=== PATIENT | female | born 1985 | race Caucasian/White ===

== ENCOUNTER 2017-07-05 16:21 | Emergency (ER) | payer OTHER ==
[2017-07-05 16:45] VITALS: BP 121/58; PULSE 72; RESP 16; TEMP 98; O2SAT 100
--- NOTE | 2017-07-05 17:43 | ED PDOC ---
HPI: Female Pain Time Seen by Provider: 07/05/17 17:00 Chief Complaint (Nursing): Female Genitourinary Chief Complaint (Provider): Vaginal spotting History Per: Patient History/Exam Limitations: no limitations Additional Complaint(s): Spotting blood since yesterday. Pelvic cramping. No dysuria. Preg 5 weeks. No chest pain, dyspnea. No weakness. No nausea or vomit. Past Medical History Reviewed: Nursing Documentation, Vital Signs Vital Signs: Last Vital Signs Temp 98.0 F 07/05/17 16:42 Pulse 72 07/05/17 16:42 Resp 16 07/05/17 16:42 BP 121/58 L 07/05/17 16:42 Pulse Ox 100 07/05/17 16:42 - Medical History Other PMH: miscarrige - Family History Family History: States: Unknown Family Hx - Social History Alcohol: None Drugs: Denies - Allergies Allergies/Adverse Reactions: Allergies Allergy/AdvReac Type Severity Reaction Status Date / Time No Known Allergies Allergy Verified 07/05/17 16:42 Review of Systems ROS Statement: Except As Marked, All Systems Reviewed And Found Negative Genitourinary Female: Positive for: Vaginal Bleeding, Pelvic Pain Physical Exam - Reviewed Nursing Documentation Reviewed: Yes Vital Signs Reviewed: Yes - Physical Exam Appears: Positive for: Non-toxic, No Acute Distress Head Exam: Positive for: ATRAUMATIC, NORMAL INSPECTION, NORMOCEPHALIC Skin: Positive for: Normal Color, Warm, DRY Eye Exam: Positive for: EOMI, Normal appearance, PERRL ENT: Positive for: Normal ENT Inspection Neck: Positive for: Normal, Painless ROM Cardiovascular/Chest: Positive for: Regular Rate, Rhythm Respiratory: Positive for: CNT, Normal Breath Sounds Gastrointestinal/Abdominal: Positive for: Bowel Sounds, Soft, Tenderness (mild across lower pelvis) Back: Positive for: Normal Inspection. Negative for: L CVA Tenderness, R CVA Tenderness Extremity: Positive for: Normal ROM Neurologic/Psych: Positive for: Alert, Oriented - Laboratory Results Result Diagrams: 07/05/17 18:05 07/05/17 18:05 Interpretation Of Abn Labs: 396 bhcg - ECG O2 Sat by Pulse Oximetry: 100 - CT Scan/US US Other Rad Studies (CT/US): Read By Radiologist Other Rad Interpretation: IUP - Progress ED Course And Treament: 2008: Stable. AAOx3. Fu with obgyn in 3 days. Repeat bhcg. No pain. Disposition - Clinical Impression Clinical Impression: Early stage of - Patient ED Disposition Is Patient to be Admitted: No Counseled Patient/Family Regarding: Studies Performed, Diagnosis, Need For Followup - Disposition Referrals: Pradip Street DO [Family Provider] - 07/06/17 Disposition: Routine/Home Disposition Time: 19:10 Condition: STABLE Additional Instructions: Return if not better in 3 days. Instructions: Threatened Miscarriage (ED) Forms: [email or web address] (Hebrew)
[2017-07-05 18:16] LABS: BASO # 0.1 K/uL (0.0-0.2); BASO % 0.7 % (0.0-2.0); EOS # 0.1 K/uL (0.0-0.7); EOS % 1.2 % (0.0-4.0); HEMOGLOBIN 14.9 g/dL (12.0-16.0); LYMPH # 3.2 K/uL (1.0-4.3); LYMPH % 30.9 % (20.0-40.0); MEAN CELL VOLUME 88.1 fl (81.0-99.0); MEAN CORPUSCULAR HEMOGLOBIN 29.9 pg (27.0-31.0); MEAN CORPUSCULAR HGB CONC 33.9 g/dL (33.0-37.0); MEAN PLATELET VOLUME 9.6 fl (7.2-11.7); MONO # 0.7 K/uL (0.0-0.8); MONO % 7.3 % (0.0-10.0); NEUT # 6.2 K/uL (1.8-7.0); NEUT % 59.9 % (50.0-75.0); NRBC % 0.1 % (0.0-0.0); RBC 4.97 Mil/uL (3.80-5.20); WHITE BLOOD COUNT 10.3 K/uL (4.8-10.8)
[2017-07-05 18:25] LABS: BLOOD UREA NITROGEN 21 mg/dl (7-17); CALCIUM 10.2 mg/dL (8.4-10.2); GFR AFRICAN-AMERICAN > 60; GFR NON-AFRICAN AMERICAN > 60
--- NOTE | 2017-07-05 19:01 | US ---
HISTORY: preg and pain COMPARISON: None available. TECHNIQUE: Transvaginal FINDINGS: UTERUS: Measures 6.5 x 3.9 x 4.7 cm. Normal in size and appearance. No fibroid or other mass lesion seen. ENDOMETRIUM: Measures 13 mm in diameter. Tiny cystic structure, 2 mm diameter, within the endometrium. Nonspecific. Possible early intrauterine gestation. Followup advised with transvaginal pelvic ultrasound and serial beta HCG. CERVIX: No cervical abnormality identified. RIGHT OVARY: Measures 2.8 x 1.8 x 2.5 cm. No solid mass. Normal flow. 1.4 cm follicular cyst LEFT OVARY: Measures 2.2 x 1.1 x 2.0 cm. No solid mass. Normal flow. FREE FLUID: No significant free fluid noted. OTHER FINDINGS: None. IMPRESSION: 2 mm cyst within the endometrium. Possible early intrauterine gestation. Followup with transvaginal ultrasound and serial beta HCG.
== END 2017-07-05 23:42 | disposition home or self-care (01) ==
LOC: H.ER 16:21
DX: O20.0 Threatened abortion (principal); Z3A.01 Less than 8 weeks gestation of pregnancy

== ENCOUNTER 2017-07-08 12:50 | Emergency (ER) | payer OTHER ==
[2017-07-08 13:10] VITALS: RESP 18
--- NOTE | 2017-07-08 14:27 | ED PDOC ---
HPI: Female Pain Time Seen by Provider: 07/08/17 13:20 Chief Complaint (Nursing): Female Genitourinary Chief Complaint (Provider): miscarraige History Per: Patient Additional Complaint(s): 31 yo female, , referred by Dr. Street, for evaluation of vaginal bleeding stating "like it is her period" +abd cramps. pt had miscariaged . for repeat blood and us. Beta: 396.25 US: IMPRESSION: 2 mm cyst within the endometrium. Possible early intrauterine gestation. Followup with transvaginal ultrasound and serial beta HCG. Past Medical History Vital Signs: Last Vital Signs Temp 98 F 07/08/17 13:07 Pulse 69 07/08/17 13:07 Resp 18 07/08/17 13:07 BP 110/52 L 07/08/17 13:07 Pulse Ox 97 07/08/17 13:07 - Family History Family History: States: Unknown Family Hx - Immunization History Hx Tetanus Toxoid Vaccination: No Hx Influenza Vaccination: No Hx Pneumococcal Vaccination: No - Home Medications Home Medications: Ambulatory Orders Medication Instructions Recorded Ibuprofen [Motrin] 600 mg PO Q6 #20 tab 07/08/17 - Allergies Allergies/Adverse Reactions: Allergies Allergy/AdvReac Type Severity Reaction Status Date / Time No Known Allergies Allergy Verified 07/05/17 16:42 - Laboratory Results Result Diagrams: 07/08/17 15:11 - ECG O2 Sat by Pulse Oximetry: 97 Medical Decision Making Medical Decision Making: Dr. Street consulted and case discussed, advised follow up as scheduled Wed Disposition - Clinical Impression Clinical Impression: Complete miscarriage - Disposition Condition: STABLE Prescriptions: Ibuprofen [Motrin] 600 mg PO Q6 #20 tab Instructions: Spontaneous Miscarriage (ED) Forms: [employer] (Greek)
[2017-07-08 15:29] LABS: BASO # 0.1 K/uL (0.0-0.2); BASO % 1.6 % (0.0-2.0); EOS # 0.1 K/uL (0.0-0.7); EOS % 1.6 % (0.0-4.0); HEMOGLOBIN 13.5 g/dL (12.0-16.0); LYMPH # 2.8 K/uL (1.0-4.3); LYMPH % 32.2 % (20.0-40.0); MEAN CELL VOLUME 89.5 fl (81.0-99.0); MEAN CORPUSCULAR HEMOGLOBIN 29.4 pg (27.0-31.0); MEAN CORPUSCULAR HGB CONC 32.8 g/dL (33.0-37.0); MEAN PLATELET VOLUME 10.5 fl (7.2-11.7); MONO # 0.6 K/uL (0.0-0.8); MONO % 6.7 % (0.0-10.0); NEUT # 5.1 K/uL (1.8-7.0); NEUT % 57.9 % (50.0-75.0); NRBC % 0.1 % (0.0-0.0); RBC 4.59 Mil/uL (3.80-5.20); WHITE BLOOD COUNT 8.8 K/uL (4.8-10.8)
--- NOTE | 2017-07-08 17:36 | US ---
HISTORY: Rule out retained products COMPARISON: None available. TECHNIQUE: Transvaginal sonographic evaluation of the pelvis performed. Comparison made with prior study 07/05/2017. FINDINGS: UTERUS: Measures approximately 7.7 x 3.8 x 4.6 cm. Normal in size and appearance. No fibroid or other mass lesion seen. No evidence of intrauterine gestation. Previously noted tiny suspected cystic structure within the endometrial canal on prior examination is not visible on this study. No evidence to suggest retained products of conception. ENDOMETRIUM: Measures 4.0 mm in diameter. Unremarkable. CERVIX: No cervical abnormality identified. Cervix measures approximately 3.8 cm RIGHT OVARY: Measures 2.0 x 1.6 x 1.8 cm. No solid mass. Normal flow. LEFT OVARY: Measures 2.3 x 1.4 x 1.5 cm. No solid mass. Normal flow. FREE FLUID: No significant free fluid noted. OTHER FINDINGS: None. IMPRESSION: No evidence of intrauterine gestation. No evidence to suggest retained products of conception. Correlation with serum beta HCG recommended as the possibility of an ectopic cannot be excluded.
[2017-07-08 19:07] VITALS: BP 128/76; PULSE 78; TEMP 97.6; O2SAT 98
== END 2017-07-08 19:07 | disposition home or self-care (01) ==
LOC: H.ER 12:50
DX: O03.9 Complete or unspecified spontaneous abortion without complication (principal)